=== PATIENT | male | born 1990 | race Caucasian/White ===

== ENCOUNTER 2022-03-04 08:32 | Emergency (ER) | payer BC, OTHER ==
[~2022-03-04] VITALS: Ht 170.2 cm; Wt 75.7 kg
[2022-03-04 08:35] VITALS: BP_SYST 134
--- NOTE | 2022-03-04 08:35 | NUR ---
Placed in room 6 . Placed on monitor technician, blood pressure machine and pulse oximeter. To gown for exam. Side rails up.
--- NOTE | 2022-03-04 09:04 | NUR ---
ER DR. WILKINSON EXAMINING PT
[2022-03-04] MEDS ORDERED: HYDR-3917 PO (09:26)
[2022-03-04] MEDS ORDERED: NAPR-688 PO (09:26)
[2022-03-04] MEDS ORDERED: SOM350 PO (09:26)
[2022-03-04 09:38] VITALS: BP_SYST 122
--- NOTE | 2022-03-04 09:38 | NUR ---
Patient given written and verbal discharge instructions and verbalizes understanding. ER MD discussed with patient the results and treatment provided. Patient in stable condition. ID arm band removed. Rx of NORCO, NAPROXEN AND SOMA given. Patient educated on pain management and to follow up with PMD. Pain Scale 0/10. Opportunity for questions provided and answered. Medication side effect fact sheet provided.
== END 2022-03-04 09:38 | disposition home or self-care (01) ==
LOC: SED 08:32
DX: S09.90XA Unspecified injury of head, initial encounter (principal); Z79.899 Other long term (current) drug therapy; V43.52XA Car driver injured in collision with other type car in traffic accident, initial encounter; Y93.89 Activity, other specified; Y92.89 Other specified places as the place of occurrence of the external cause; Y99.8 Other external cause status
CPT/HCPCS: 99282